=== PATIENT | female | born 1950 | race Caucasian/White ===

== ENCOUNTER 2018-09-29 11:49 | Emergency (ER) | payer MEDICARE, MEDICAID ==
[~2018-09-29] VITALS: Ht 160 cm; Wt 49.0 kg
[~2018-09-29 11:49] MED LIST: FLU05NSL; NYS5LQ MT
[2018-09-29 13:07] LABS: Urine Bacteria NONE SEEN /hpf (None Seen); Urine Blood Negative /uL (Negative); Urine Hyaline Cast FEW /lpf (0 - 2); Urine Mucus FEW (None Seen); Urine Specific Gravity 1.029 (1.001-1.035); Urine WBC 19 /hpf (0 - 5)
[2018-09-29 14:23] VITALS: BP 109/60
== END 2018-09-29 15:04 | disposition home or self-care (01) ==
LOC: ER 11:54
DX: N39.0 Urinary tract infection, site not specified (principal); J45.909 Unspecified asthma, uncomplicated; Z90.710 Acquired absence of both cervix and uterus
CPT/HCPCS: 71046; 81001

== ENCOUNTER 2018-10-09 16:45 | Emergency (ER) | payer MEDICARE, MEDICAID ==
[~2018-10-09] VITALS: Ht 160 cm; Wt 49.4 kg
[2018-10-09 20:02] LABS: Basophils # (auto) 0 uL; Basophils % (auto) 0.3 % (0.0-2.0); Eosinophils # (auto) 0.1 uL; Eosinophils % (auto) 1.4 % (0.0-7.0); Hematocrit 40.3 % (36.0-46.0); Hemoglobin 13.4 g/dL (12.2-16.2); Lymphocytes # (auto) 1.3 uL; Lymphocytes % (auto) 18.8 % (10.0-50.0); Mean Corpuscular Hemoglobin 29.8 pg (28.0-32.0); Mean Corpuscular Hgb Conc. 33.4 g/dL (32.0-36.0); Mean Corpuscular Volume 89.2 fL (80.0-100.0); Monocytes # (auto) 0.5 uL; Monocytes % (auto) 7.2 % (0.0-12.0); Neutrophils # (auto) 5.1 uL; Neutrophils % (auto) 72.3 % (37.0-80.0); Nucleated Red Blood Cells % 0.1 %; Platelet Count (auto) 372 10^3/uL (140-450); Red Blood Cells 4.52 10^6/uL (4.0-5.20); Red Cell Distribution Width 14.1 % (11.8-14.3)
[2018-10-09 20:07] LABS: Urine Bacteria FEW /hpf (None Seen); Urine Blood Negative /uL (Negative); Urine Mucus FEW (None Seen); Urine Specific Gravity 1.023 (1.001-1.035); Urine WBC 14 /hpf (0 - 5)
[2018-10-09 20:15] LABS: Albumin 3.6 g/dL (3.4-5.0); BUN/Creatinine Ratio 18.4; Calcium 9.5 mg/dL (8.5-10.1); Potassium 4.1 mmol/L (3.5-5.1)
[2018-10-09 20:17] LABS: Bilirubin, Total 0.3 mg/dL (0.2-1.0); Total Protein 8.4 g/dL (6.4-8.2)
[2018-10-09] MEDS ORDERED: SODIUM CHLORIDE 0.9% 1,000 ML IV ONE (21:30)
[2018-10-10] MEDS ORDERED: ENOXAPARIN SOD 100 MG/1 ML SYRINGE SC ONE (00:30)
[2018-10-10] MEDS ORDERED: cefTRIAXone 1GM/50ML D5W 50 ML IV ONE (00:30)
[2018-10-10 01:27] VITALS: BP 127/76
== END 2018-10-10 01:33 | disposition home or self-care (01) ==
LOC: ER 16:50
DX: I80.01 Phlebitis and thrombophlebitis of superficial vessels of right lower extremity (principal); N39.0 Urinary tract infection, site not specified; J45.909 Unspecified asthma, uncomplicated; Z90.710 Acquired absence of both cervix and uterus
CPT/HCPCS: 36415; 73700; 80053; 81001; 85025; 99284; J7030

== ENCOUNTER 2019-03-01 11:58 | Emergency (ER) | payer MEDICARE, MEDICAID ==
[~2019-03-01] VITALS: Ht 160 cm; Wt 54.4 kg
[2019-03-01 12:23] VITALS: BP 133/66
== END 2019-03-01 13:43 | disposition home or self-care (01) ==
LOC: ER 12:05
DX: J02.9 Acute pharyngitis, unspecified (principal); J45.909 Unspecified asthma, uncomplicated; Z88.0 Allergy status to penicillin; Z88.1 Allergy status to other antibiotic agents; Z90.710 Acquired absence of both cervix and uterus

== ENCOUNTER → 2019-10-23 | Emergency (ER) | payer MEDICARE, MEDICAID ==
[~2019-10-23] VITALS: Ht 162.6 cm; Wt 56.7 kg
[2019-10-23 13:56] VITALS: BP 125/45
== END | disposition home or self-care (01) ==
LOC: ER 13:41
DX: S76.011A Strain of muscle, fascia and tendon of right hip, initial encounter (principal); S90.111A Contusion of right great toe without damage to nail, initial encounter; S80.211A Abrasion, right knee, initial encounter; X58.XXXA Exposure to other specified factors, initial encounter; Y93.89 Activity, other specified; Y92.89 Other specified places as the place of occurrence of the external cause; Y99.8 Other external cause status
CPT/HCPCS: 73502; 73562; 73630; 99284; J7030

== ENCOUNTER 2021-10-05 20:35 | Emergency (ER) | payer MEDICARE, MEDICAID ==
[~2021-10-05] VITALS: Ht 160 cm; Wt 65.0 kg
[2021-10-06 01:00] LABS: Hematocrit 39.3 % (36.0-46.0); Hemoglobin 13.1 g/dL (12.2-16.2); Mean Corpuscular Hemoglobin 28.2 pg (28.0-32.0); Mean Corpuscular Hgb Conc. 33.4 g/dL (32.0-36.0); Mean Corpuscular Volume 84.6 fL (80.0-100.0); Red Blood Cells 4.64 10^6/uL (4.0-5.20); Red Cell Distribution Width 15.3 % (11.8-14.3); White Blood Cell 5.2 10^3/uL (4.4-10.8)
[2021-10-06 01:06] LABS: Basophils % (manual) 0 (0.0-2.0); Blast Cells 0; Eosinophils % (manual) 0 (0-7); Metamyelocytes % 0; Myelocytes % 0; Promyelocytes % 0; Reactive Lymphocytes 0
[2021-10-06 01:10] LABS: Urine Bacteria FEW /hpf (None Seen); Urine Blood Negative /uL (Negative); Urine Mucus FEW (None Seen); Urine Specific Gravity 1.016 (1.001-1.035); Urine WBC 20 /hpf (0 - 5)
[2021-10-06 01:16] LABS: Calcium 8.8 mg/dL (8.5-10.1); Potassium 3.8 mmol/L (3.5-5.1)
[2021-10-06 01:18] LABS: BUN/Creatinine Ratio 10.5
[2021-10-06 01:21] LABS: Bilirubin, Total 0.4 mg/dL (0.2-1.0); Total Protein 8.1 g/dL (6.4-8.2)
[2021-10-06 01:34] LABS: Band Neutrophils % (manual) 1; Lymphocytes % (manual) 18 (10.0-50.0); Monocytes % (manual) 9 (0-12)
[2021-10-06 02:20] VITALS: BP 116/71
== END 2021-10-06 02:41 | disposition home or self-care (01) ==
LOC: ER 20:35
DX: R42 Dizziness and giddiness (principal); N39.0 Urinary tract infection, site not specified
CPT/HCPCS: 36415; 80053; 81001; 85007; 85027; 93005